=== PATIENT | male | born 1990 | race Caucasian/White ===

== ENCOUNTER 2022-09-06 19:58 | Emergency (ER) | payer OTHER ==
[2022-09-06 20:42] LABS: BASOPHILS # (AUTO) 0.1 10^3/uL (0.0-0.1); BASOPHILS % (AUTO) 0.7 %; EOSINOPHILS # (AUTO) 0.1 10^3/uL (0.0-0.7); EOSINOPHILS % (AUTO) 1.7 %; HCT - HEMATOCRIT 37.4 % (42.0-52.0); HGB - HEMOGLOBIN 13.6 g/dL (14.0-18.0); LYMPHOCYTES # (AUTO) 2.5 10^3/uL (1.5-3.5); MEAN CORPUSCULAR HGB CONC 36.4 g/dL (32.0-36.0); MEAN CORPUSCULAR VOLUME 85.2 fL (80.0-94.0); MEAN PLATELET VOLUME 10.5 fL (7.4-11.4); MONOCYTES # (AUTO) 0.7 10^3/uL (0.0-1.0); MONOCYTES % (AUTO) 8.8 %; NEUTROPHILS # (AUTO) 4.3 10^3/uL (1.5-6.6); NEUTROPHILS % (AUTO) 56.7 %; PLT - PLATELET COUNT 227 10^3/uL (130-450); RED BLOOD COUNT 4.39 10^6/uL (4.70-6.10); RED CELL DISTRIBUTION WIDTH 11.4 % (12.0-15.0); WHITE BLOOD COUNT 7.7 x10^3/uL (4.8-10.8)
[2022-09-06 20:58] LABS: ALBUMIN 3.9 g/dL (3.2-5.5); ALBUMIN/GLOBULIN RATIO 1.3 (1.0-2.2); BILIRUBIN,TOTAL 0.9 mg/dL (0.2-1.0); CALCIUM 8.4 mg/dL (8.5-10.3); POTASSIUM 3.5 mmol/L (3.5-5.0); TOTAL PROTEIN 6.8 g/dL (6.7-8.2)
--- NOTE | 2022-09-06 21:02 | XRAY Report ---
PROCEDURE: Chest 1 View X-Ray INDICATIONS: Chest Pain TECHNIQUE: One view of the chest was acquired. COMPARISON: None. FINDINGS: Surgical changes and devices: None. Lungs and pleura: No pleural effusions or pneumothorax. Lungs are clear. Mediastinum: Mediastinal contours appear normal. Heart size is normal. Bones and chest wall: No suspicious bony lesions. Overlying soft tissues appear unremarkable. IMPRESSION: No acute cardiopulmonary disease. Reviewed by: Brennan Randhawa MD on 09/06/2022 9:00 PM PDT Approved by: Brennan Randhawa MD on 09/06/2022 9:00 PM PDT Station ID: [id number]
--- NOTE | 2022-09-06 21:03 | ED Physician Documentation ---
PD HPI CHEST PAIN - Stated complaint Stated Complaint: CHEST PX - Chief complaint Chief Complaint: Cardiac - History obtained from History obtained from: Patient - Additional information Additional information: 32-year-old man with no past medical history, non-smoker, presents with substernal chest pain occurring at 7:30 AM with left upper extremity pain and hot flash sensation that resolved, then he went to the gym and had a full workout without issues. At 7:30 PM he had recurrence of the chest pain anxious and hot again. He now feels normal in the ED. PERC negative. Review of Systems Constitutional: denies: Fever Cardiac: reports: Chest pain / pressure. denies: Calf pain Respiratory: denies: Dyspnea, Cough GI: denies: Nausea, Vomiting PD PAST MEDICAL HISTORY - Allergies Allergies/Adverse Reactions: Allergies Allergy/AdvReac Type Severity Reaction Status Date / Time shellfish derived Allergy Itching Verified 09/06/22 20:10 PD ED PE NORMAL - Vitals Vital signs reviewed: Yes - General General: Alert and oriented X 3, No acute distress, Well developed/nourished - HEENT HEENT: Atraumatic, PERRL, EOMI - Neck Neck: Supple, no meningeal sign - Cardiac Cardiac: RRR, No murmur - Respiratory Respiratory: No respiratory distress, Clear bilaterally - Abdomen Abdomen: Non tender, Non distended - Derm Derm: Normal color, Warm and dry - Extremities Extremities: No deformity - Neuro Neuro: No motor deficit, No sensory deficit - Psych Psych: Normal mood, Normal affect Results - Vitals Vitals: Vital Signs - 24 hr 09/06/22 20:08 Temperature 36.5 C Heart Rate 79 Respiratory 16 Rate Blood Pressure 139/81 H O2 Saturation 98 Oxygen O2 Source Room air - EKG (time done) 2013 EKG releavant findings:: EKG personally interpreted by author of this note. Relevant findings are: Rate: Rate (enter#) (76) Rhythm: NSR [place]: Normal Intervals: Normal IN QRS: Normal Ischemia: Normal ST segments - Labs Labs: Laboratory Tests 09/06/22 09/06/22 09/06/22 20:35 20:35 20:35 WBC 7.7 RBC 4.39 L Hgb 13.6 L Hct 37.4 L MCV 85.2 MCH 31.0 MCHC 36.4 H RDW 11.4 L Plt Count 227 MPV 10.5 Neut # (Auto) 4.3 Lymph # (Auto) 2.5 [place] # (Auto) 0.7 Eos # (Auto) 0.1 Baso # (Auto) 0.1 Absolute Nucleated RBC 0.00 Nucleated RBC % 0.0 Sodium 139 Potassium 3.5 Chloride 106 Carbon Dioxide 26 Anion Gap 7.0 BUN 15 Creatinine 1.0 Estimated GFR (MDRD) 87 L Glucose 112 H Calcium 8.4 L Total Bilirubin 0.9 AST 22 ALT 19 Alkaline Phosphatase 45 Troponin I High Sens < 2.3 L Total Protein 6.8 Albumin 3.9 Globulin 2.9 Albumin/Globulin Ratio 1.3 Lipase 31 PD Medical Decision Making - ED course ED course: 32yM p/w atypical chest pain twice today, self resolving. CBC, abdominal panel, troponin, EKG, chest x-ray ordered and all were unremarkable. Vitals and physical exam are benign With exception of some borderline hypertension. HEART score 0. PERC negative. Advised patient to follow-up with his primary care provider and return precautions were given. Departure - Departure Disposition: 01 Home, Self Care Clinical Impression: Chest pain Condition: Stable Instructions: ED Chest Pain NonCardiac Comments: You were seen in the ED for medical evaluation and had labwork done that was all normal. Your EKG and chest xray were normal too. Please follow up with your primary care provider routinely. Return to the ED if you have other concerns.
[2022-09-06 21:27] VITALS: BP 135/87
== END 2022-09-06 21:34 | disposition home or self-care (01) ==
LOC: ED 19:58
DX: R07.89 Other chest pain (principal)
CPT/HCPCS: 36415; 80053; 83690; 84484; 85025; 93005; 99283; 99284